=== PATIENT | male | born 1985 | race Caucasian/White ===

== ENCOUNTER 2021-11-15 23:03 | Inpatient (IN) | payer MEDICAID, SELFPAY ==
[~2021-11-15] VITALS: Ht 165.1 cm; Wt 52.6 kg
[2021-11-15 23:10] VITALS: BP_SYST 112
[2021-11-15] MEDS ORDERED: ONDANSETRON HCL 4 MG/2 ML VIAL IVP ONE (23:45)
[2021-11-15] MEDS ORDERED: cloNIDine HCL 0.1 MG TABLET PO ONE (23:45)
[2021-11-15] MEDS ORDERED: ASPIRIN 325 MG TABLET PO ONE (23:45)
[2021-11-15] MEDS ORDERED: NITROGLYCERIN 0.4 MG TAB.SUBL SL ONE (23:45)
[2021-11-15] MEDS ORDERED: MORPHINE 4 MG INJ. 4 MG/ML VIAL IVP ONE (23:45)
[2021-11-16] VITALS (8 sets, daily range): BP systolic 99–107
[2021-11-16 01:34] LABS: CALCIUM 9.5 mg/dL (8.4-11.0); CREATININE 0.5 mg/dL (0.55-1.30); POTASSIUM 3.5 mmol/L (3.5-5.1)
[2021-11-16 01:44] LABS: ALBUMIN 2.1 g/dL (3.4-4.8)
[2021-11-16] MEDS ORDERED: NS 500 ML IV ONE ×2 (01:45)
[2021-11-16] MEDS ORDERED: ONDANSETRON HCL 4 MG/2 ML VIAL IVP ONE (02:15)
[2021-11-16] MEDS ORDERED: MORPHINE 4 MG INJ. 4 MG/ML VIAL IVP ONE (02:15)
[2021-11-16 02:28] LABS: BASOPHILS # (AUTO) 0.1 K/uL (0.0-0.2); BASOPHILS % (AUTO) 0.3 % (0.0-2.0); EOSINOPHILS # (AUTO) 0.5 K/uL (0.0-0.4); HEMATOCRIT 24.8 % (36-54); LYMPHOCYTES # (AUTO) 5.9 K/uL (1.0-5.5); MEAN CORPUSCULAR HEMOGLOBIN 28 pg (27-31); MEAN CORPUSCULAR HGB CONC 32 % (32-36); MEAN CORPUSCULAR VOLUME 86 fL (79.0-98.0); MONOCYTES # (AUTO) 1.3 K/uL (0.0-1.0); MONOCYTES % (AUTO) 6.9 % (1.7-9.3); NEUTROPHILS # (AUTO) 10.6 K/uL (1.8-7.7); NEUTROPHILS % (AUTO) 57.8 % (40.0-70.0); RED BLOOD CELL COUNT(AUTO) 2.88 MIL/uL (4.2-6.2); RED CELL DISTRIBUTION WIDTH 21.6 % (9.0-15.0); WHITE BLOOD COUNT (AUTO) 18.4 K/uL (4.8-10.8)
[2021-11-16 02:32] LABS: PLATELET COUNT (AUTO) 962 K/uL (130-430)
[2021-11-16 03:19] LABS: BILIRUBIN,URINE NEGATIVE (NEGATIVE); BLOOD, URINE NEGATIVE (NEGATIVE); CLARITY/URINE CLEAR (CLEAR); COLOR,URINE YELLOW (YELLOW); GLUCOSE,URINE NEGATIVE (NEGATIVE); KETONES,URINE NEGATIVE (NEGATIVE); LEUKOCYTE ESTERASE ,URINE NEGATIVE (NEGATIVE); NITRITE, URINE NEGATIVE (NEGATIVE); PH,URINE 6.5 (5.0-8.0); PROTEIN URINE TRACE (NEGATIVE); UROBILINOGEN,URINE 0.2 (0.2-1.0)
[2021-11-16 03:45] LABS: URINE SULFO SALICYLIC ACID NEGATIVE (NEGATIVE)
[2021-11-16 04:39] LABS: TOTAL BILIRUBIN 0.9 mg/dL (0.0-1.0)
[2021-11-16] MEDS ORDERED: VANCOMYCIN HCL 1,000 MG in NS 250 ML IV ONE (06:15)
[2021-11-16] MEDS ORDERED: LEVOFLOXACIN IN DEXTROSE 5 % 100 ML IV ONE (06:15)
[2021-11-16] MEDS ORDERED: PIPERACILLIN/TAZO 3.375 GM in NS 50 ML IV ONE (06:15)
[2021-11-16] MEDS ORDERED: MORPHINE 2 MG/ML INJ. SYRINGE IVP ONE (06:15)
[2021-11-16] MEDS ORDERED: VANCOMYCIN HCL 1000 MG/VIAL IV ONE (06:34)
[2021-11-16] MEDS ORDERED: PIPERACILLIN/TAZOBACTAM 3.375 GM/VIAL (ZOSYN) IV ONE (06:34)
[2021-11-16] MEDS ORDERED: OXYIR5 GT (06:53)
[2021-11-16] MEDS ORDERED: MELA5TAB12 GT (06:53)
[2021-11-16] MEDS ORDERED: PROP10TA10 GT (06:53)
[2021-11-16] MEDS ORDERED: ASCO500T20 GT (06:53)
[2021-11-16] MEDS ORDERED: ASA81 GT (06:53)
[2021-11-16] MEDS ORDERED: TYLL650 GT (06:53)
[2021-11-16] MEDS ORDERED: CHLO473M5 PO (06:53)
[2021-11-16] MEDS ORDERED: ALBU8.5H8 INH (06:53)
[2021-11-16] MEDS ORDERED: CARB30DR14 EACH EYE (06:53)
[2021-11-16] MEDS ORDERED: DOCU-144 GT (06:53)
[2021-11-16] MEDS ORDERED: MULT-1117 GT (06:53)
[2021-11-16] MEDS ORDERED: ZINC50TA69 GT (06:53)
[2021-11-16] MEDS ORDERED: LIP40 GT (06:53)
[2021-11-16] MEDS ORDERED: INSU100V9 SQ (06:53)
[2021-11-16] MEDS ORDERED: MORPHINE 2 MG/ML INJ. SYRINGE ONE (07:53)
[2021-11-16] MEDS: MORPHINE 2 MG/ML INJ. SYRINGE IVP PRN ×2 (08:34→13:52)
[2021-11-16] MEDS: D5/0.45 NS 1,000 ML IV SCH (08:41)
[2021-11-16] MEDS ORDERED: oxyCODONE HCL 5 MG TABLET GT PRN (13:30)
[2021-11-16] MEDS ORDERED: ALBUTEROL MDI INHALATION 8 GM INH INH PRN (13:30)
[2021-11-16] MEDS ORDERED: ACETAMINOPHEN 650 MG/20.3 ML UDC GT SCH (13:30)
[2021-11-16] MEDS ORDERED: ALBUTEROL SULFATE 0.083% 2.5 MG/3 ML VIAL.NEB INH PRN (14:00)
[2021-11-16] MEDS: CEFEPIME 2 GM in D5W 100 ML IV SCH (16:45)
[2021-11-16] MEDS ORDERED: BALSAM PERU/CASTOR OIL 56.7 GM OINT...G. TP ONE (17:30)
[2021-11-16] MEDS: PROPRANOLOL HCL 10 MG TABLET (INDERAL) GT SCH ×2 (18:00→23:59)
[2021-11-16] MEDS: VANCOMYCIN HCL 1,250 MG in NS 250 ML IV SCH (18:14)
[2021-11-16] MEDS: ATORVASTATIN 20 MG TABLET GT SCH (21:53)
[2021-11-16] MEDS: CHLORHEXIDINE GLUCONATE 15 ML/DOSE, 480 ML MM SCH (21:54)
[2021-11-16] MEDS: levoFLOXacin 500 MG TABLET PO SCH (21:58)
[2021-11-17] VITALS (7 sets, daily range): BP systolic 97–150
[2021-11-17] MEDS: MORPHINE 2 MG/ML INJ. SYRINGE IVP PRN ×5 (02:07→20:48)
[2021-11-17] MEDS: CEFEPIME 2 GM in D5W 100 ML IV SCH ×2 (05:29→16:08)
[2021-11-17] MEDS: D5/0.45 NS 1,000 ML IV SCH ×2 (05:30→23:00)
[2021-11-17 06:27] LABS: CALCIUM 9.3 mg/dL (8.4-11.0); CREATININE 0.48 mg/dL (0.55-1.30); POTASSIUM 3.1 mmol/L (3.5-5.1)
[2021-11-17] MEDS: PROPRANOLOL HCL 10 MG TABLET (INDERAL) GT SCH ×3 (07:26→17:00)
[2021-11-17] MEDS: VANCOMYCIN HCL 1,250 MG in NS 250 ML IV SCH ×2 (07:26→17:01)
[2021-11-17 07:27] LABS: BASOPHILS # (AUTO) 0.1 K/uL (0.0-0.2); BASOPHILS % (AUTO) 0.6 % (0.0-2.0); EOSINOPHILS # (AUTO) 0.2 K/uL (0.0-0.4); EOSINOPHILS % (AUTO) 1.5 % (0.0-4.0); HEMATOCRIT 23.4 % (36-54); HEMOGLOBIN 7.4 g/dL (14.0-18.0); LYMPHOCYTES # (AUTO) 5.1 K/uL (1.0-5.5); LYMPHOCYTES % (AUTO) 41.7 % (20.5-51.5); MEAN CORPUSCULAR HEMOGLOBIN 27 pg (27-31); MEAN CORPUSCULAR HGB CONC 32 % (32-36); MEAN CORPUSCULAR VOLUME 86 fL (79.0-98.0); MONOCYTES # (AUTO) 1.3 K/uL (0.0-1.0); MONOCYTES % (AUTO) 10.9 % (1.7-9.3); NEUTROPHILS # (AUTO) 5.6 K/uL (1.8-7.7); RED BLOOD CELL COUNT(AUTO) 2.71 MIL/uL (4.2-6.2); RED CELL DISTRIBUTION WIDTH 21.3 % (9.0-15.0); WHITE BLOOD COUNT (AUTO) 12.3 K/uL (4.8-10.8)
[2021-11-17] MEDS: ASCORBIC ACID 500 MG TABLET GT SCH (08:26)
[2021-11-17] MEDS: MULTIVITAMINS TAB 1 TABLET GT SCH (08:27)
[2021-11-17] MEDS: ASPIRIN 81 MG TAB.CHEW GT SCH (08:27)
[2021-11-17] MEDS: DOCUSATE SODIUM 100 MG CAPSULE PO SCH (08:28)
[2021-11-17] MEDS: CHLORHEXIDINE GLUCONATE 15 ML/DOSE, 480 ML MM SCH ×2 (08:34→20:43)
[2021-11-17] MEDS: BALSAM PERU/CASTOR OIL 56.7 GM OINT...G. TP SCH (08:34)
[2021-11-17 08:50] LABS: PLATELET COUNT (AUTO) 929 K/uL (130-430)
[2021-11-17 14:03] LABS: NEUTROPHILS % (AUTO) 45.3 % (40.0-70.0)
[2021-11-17] MEDS: levoFLOXacin 500 MG TABLET PO SCH (20:43)
[2021-11-17] MEDS: ATORVASTATIN 20 MG TABLET GT SCH (20:43)
[2021-11-18] VITALS (7 sets, daily range): BP systolic 96–119
[2021-11-18] MEDS: PROPRANOLOL HCL 10 MG TABLET (INDERAL) GT SCH ×4 (00:31→17:09)
[2021-11-18] MEDS: MORPHINE 2 MG/ML INJ. SYRINGE IVP PRN ×6 (00:36→21:47)
[2021-11-18] MEDS: CEFEPIME 2 GM in D5W 100 ML IV SCH ×2 (05:13→17:08)
[2021-11-18] MEDS: VANCOMYCIN HCL 1,250 MG in NS 250 ML IV SCH (05:14)
[2021-11-18] MEDS: BALSAM PERU/CASTOR OIL 56.7 GM OINT...G. TP SCH (09:32)
[2021-11-18] MEDS: CHLORHEXIDINE GLUCONATE 15 ML/DOSE, 480 ML MM SCH ×2 (09:32→21:47)
[2021-11-18] MEDS: ASCORBIC ACID 500 MG TABLET GT SCH (09:33)
[2021-11-18] MEDS: DOCUSATE SODIUM 100 MG CAPSULE PO SCH (09:33)
[2021-11-18] MEDS: ASPIRIN 81 MG TAB.CHEW GT SCH (09:33)
[2021-11-18] MEDS: MULTIVITAMINS TAB 1 TABLET GT SCH (09:33)
[2021-11-18 10:42] LABS: ALANINE AMINOTRANSFERASE 18 U/L (12-78); ANION GAP 12 (5-15); ASPARTATE AMINOTRANSFERASE 20 U/L (10-37); CALCIUM 9.2 mg/dL (8.4-11.0); CHLORIDE 106 mmol/L (98-107); GFR AFRICAN AMERICAN 242 mL/min (>90); GLUCOSE 121 mg/dL (70-99); POTASSIUM 3.3 mmol/L (3.5-5.1); SODIUM SERUM 143 mmol/L (136-145); TOTAL BILIRUBIN < 0.1 mg/dL (0.0-1.0); UREA NITROGEN, BLOOD 8 mg/dL (8-21)
[2021-11-18 11:43] LABS: BASOPHILS # (AUTO) 0.1 K/uL (0.0-0.2); BASOPHILS % (AUTO) 0.8 % (0.0-2.0); EOSINOPHILS # (AUTO) 0.3 K/uL (0.0-0.4); EOSINOPHILS % (AUTO) 2.1 % (0.0-4.0); HEMOGLOBIN 7.5 g/dL (14.0-18.0); LYMPHOCYTES # (AUTO) 5.3 K/uL (1.0-5.5); LYMPHOCYTES % (AUTO) 35.6 % (20.5-51.5); MEAN CORPUSCULAR HEMOGLOBIN 27 pg (27-31); MEAN CORPUSCULAR HGB CONC 31 % (32-36); MEAN CORPUSCULAR VOLUME 88 fL (79.0-98.0); MONOCYTES # (AUTO) 1.7 K/uL (0.0-1.0); MONOCYTES % (AUTO) 11.4 % (1.7-9.3); NEUTROPHILS # (AUTO) 7.5 K/uL (1.8-7.7); NEUTROPHILS % (AUTO) 50.1 % (40.0-70.0); RED BLOOD CELL COUNT(AUTO) 2.73 MIL/uL (4.2-6.2); RED CELL DISTRIBUTION WIDTH 21.6 % (9.0-15.0)
[2021-11-18] MEDS ORDERED: POTASSIUM CHLORIDE 20 MEQ TAB.PRT.SR PO ONE (11:45)
[2021-11-18 13:02] LABS: PLATELET COUNT (AUTO) 927 K/uL (130-430)
[2021-11-18] MEDS: VANCOMYCIN HCL 1,000 MG in NS 250 ML IV SCH (17:20)
[2021-11-18] MEDS: D5/0.45 NS 1,000 ML IV SCH (19:00)
[2021-11-18] MEDS: ATORVASTATIN 20 MG TABLET GT SCH (21:44)
[2021-11-18] MEDS: levoFLOXacin 500 MG TABLET PO SCH (21:44)
[2021-11-19] VITALS: BP_SYST 105
[2021-11-19] MEDS: PROPRANOLOL HCL 10 MG TABLET (INDERAL) GT SCH ×4 (00:42→17:51)
[2021-11-19] MEDS: MORPHINE 2 MG/ML INJ. SYRINGE IVP PRN ×8 (01:49→22:55)
[2021-11-19] MEDS: CEFEPIME 2 GM in D5W 100 ML IV SCH (05:08)
[2021-11-19] MEDS: VANCOMYCIN HCL 1,000 MG in NS 250 ML IV SCH ×2 (05:56→17:52)
[2021-11-19 08:00] VITALS: BP_SYST 102
[2021-11-19 09:16] VITALS: BP_SYST 111
[2021-11-19] MEDS: ASPIRIN 81 MG TAB.CHEW GT SCH (10:06)
[2021-11-19] MEDS: MULTIVITAMINS TAB 1 TABLET GT SCH (10:06)
[2021-11-19] MEDS: CHLORHEXIDINE GLUCONATE 15 ML/DOSE, 480 ML MM SCH ×2 (10:06→22:50)
[2021-11-19] MEDS: DOCUSATE SODIUM 100 MG CAPSULE PO SCH (10:07)
[2021-11-19] MEDS: ASCORBIC ACID 500 MG TABLET GT SCH (10:07)
[2021-11-19] MEDS: BALSAM PERU/CASTOR OIL 56.7 GM OINT...G. TP SCH (10:08)
[2021-11-19 12:19] VITALS: BP_SYST 104
[2021-11-19] MEDS ORDERED: SULFAMETHOXAZOLE/TRIMETHOPR DS 1 TABLET PO ONE (13:00)
[2021-11-19] MEDS: D5/0.45 NS 1,000 ML IV SCH (13:13)
[2021-11-19 16:32] VITALS: BP_SYST 110
[2021-11-19 21:03] VITALS: BP_SYST 100
[2021-11-19] MEDS: ATORVASTATIN 20 MG TABLET GT SCH (22:49)
[2021-11-19] MEDS: levoFLOXacin 500 MG TABLET PO SCH (22:50)
[2021-11-19] MEDS: SULFAMETHOXAZOLE/TRIMETHOPR DS 1 TABLET PO SCH (22:50)
[2021-11-20] VITALS (7 sets, daily range): BP systolic 93–121
[2021-11-20] MEDS: PROPRANOLOL HCL 10 MG TABLET (INDERAL) GT SCH ×5 (00:18→23:42)
[2021-11-20] MEDS: MORPHINE 2 MG/ML INJ. SYRINGE IVP PRN ×4 (03:02→17:53)
[2021-11-20] MEDS: VANCOMYCIN HCL 1,000 MG in NS 250 ML IV SCH (06:20)
[2021-11-20 06:58] LABS: BASOPHILS # (AUTO) 0.1 K/uL (0.0-0.2); BASOPHILS % (AUTO) 0.4 % (0.0-2.0); EOSINOPHILS # (AUTO) 0.5 K/uL (0.0-0.4); EOSINOPHILS % (AUTO) 3.6 % (0.0-4.0); HEMOGLOBIN 7.6 g/dL (14.0-18.0); LYMPHOCYTES # (AUTO) 5.2 K/uL (1.0-5.5); LYMPHOCYTES % (AUTO) 35.5 % (20.5-51.5); MEAN CORPUSCULAR HEMOGLOBIN 27 pg (27-31); MEAN CORPUSCULAR HGB CONC 32 % (32-36); MEAN CORPUSCULAR VOLUME 86 fL (79.0-98.0); MONOCYTES # (AUTO) 1.2 K/uL (0.0-1.0); MONOCYTES % (AUTO) 7.9 % (1.7-9.3); NEUTROPHILS # (AUTO) 7.7 K/uL (1.8-7.7); NEUTROPHILS % (AUTO) 52.6 % (40.0-70.0); RED BLOOD CELL COUNT(AUTO) 2.79 MIL/uL (4.2-6.2); RED CELL DISTRIBUTION WIDTH 21.3 % (9.0-15.0); WHITE BLOOD COUNT (AUTO) 14.6 K/uL (4.8-10.8)
[2021-11-20 07:48] LABS: PLATELET COUNT (AUTO) 932 K/uL (130-430)
[2021-11-20 07:54] LABS: ALANINE AMINOTRANSFERASE 17 U/L (12-78); ALBUMIN 1.9 g/dL (3.4-4.8); ANION GAP 9 (5-15); ASPARTATE AMINOTRANSFERASE 24 U/L (10-37); CALCIUM 9.1 mg/dL (8.4-11.0); CHLORIDE 104 mmol/L (98-107); CREATININE 0.44 mg/dL (0.55-1.30); GLUCOSE 93 mg/dL (70-99); POTASSIUM 3.2 mmol/L (3.5-5.1); SODIUM SERUM 137 mmol/L (136-145); UREA NITROGEN, BLOOD 9 mg/dL (8-21)
[2021-11-20 08:24] LABS: GFR AFRICAN AMERICAN 280 mL/min (>90)
[2021-11-20 08:40] LABS: TOTAL BILIRUBIN < 0.1 mg/dL (0.0-1.0)
[2021-11-20] MEDS: ASCORBIC ACID 500 MG TABLET GT SCH (08:48)
[2021-11-20] MEDS: DOCUSATE SODIUM 100 MG CAPSULE PO SCH (08:48)
[2021-11-20] MEDS: ASPIRIN 81 MG TAB.CHEW GT SCH (08:48)
[2021-11-20] MEDS: MULTIVITAMINS TAB 1 TABLET GT SCH (08:49)
[2021-11-20] MEDS: SULFAMETHOXAZOLE/TRIMETHOPR DS 1 TABLET PO SCH ×2 (08:49→22:28)
[2021-11-20] MEDS: BALSAM PERU/CASTOR OIL 56.7 GM OINT...G. TP SCH (08:50)
[2021-11-20] MEDS: CHLORHEXIDINE GLUCONATE 15 ML/DOSE, 480 ML MM SCH ×2 (08:50→22:29)
[2021-11-20] MEDS ORDERED: POTASSIUM CHLORIDE 8 MEQ TABLET.SA PO ONE (09:30)
[2021-11-20] MEDS: D5/0.45 NS 1,000 ML IV SCH (13:19)
[2021-11-20] MEDS: ACETAMINOPHEN 650 MG/20.3 ML UDC GT PRN (19:03)
[2021-11-20] MEDS: VANCOMYCIN HCL 750 MG in NS 250 ML IV SCH (19:06)
[2021-11-20] MEDS: ATORVASTATIN 20 MG TABLET GT SCH (22:28)
[2021-11-20] MEDS: levoFLOXacin 500 MG TABLET PO SCH (22:28)
[2021-11-21] MEDS: VANCOMYCIN HCL 750 MG in NS 250 ML IV SCH ×3 (02:22→17:59)
[2021-11-21] MEDS: MORPHINE 2 MG/ML INJ. SYRINGE IVP PRN ×5 (02:23→20:06)
[2021-11-21] MEDS: D5/0.45 NS 1,000 ML IV SCH ×2 (07:00→10:08)
[2021-11-21] MEDS: PROPRANOLOL HCL 10 MG TABLET (INDERAL) GT SCH ×3 (07:29→18:00)
[2021-11-21 07:44] LABS: TOTAL IRON BIND. CAPACITY 225 ug/dL (250-450)
[2021-11-21 08:03] VITALS: BP_SYST 102
[2021-11-21] MEDS: DOCUSATE SODIUM 100 MG CAPSULE PO SCH (09:00)
[2021-11-21] MEDS: MULTIVITAMINS TAB 1 TABLET GT SCH (09:54)
[2021-11-21] MEDS: SULFAMETHOXAZOLE/TRIMETHOPR DS 1 TABLET PO SCH ×2 (09:54→20:12)
[2021-11-21] MEDS: CHLORHEXIDINE GLUCONATE 15 ML/DOSE, 480 ML MM SCH ×2 (09:54→20:12)
[2021-11-21] MEDS: ASPIRIN 81 MG TAB.CHEW GT SCH (09:54)
[2021-11-21] MEDS: ASCORBIC ACID 500 MG TABLET GT SCH (09:54)
[2021-11-21] MEDS: BALSAM PERU/CASTOR OIL 56.7 GM OINT...G. TP SCH (09:55)
[2021-11-21 11:31] VITALS: BP_SYST 101
[2021-11-21] MEDS ORDERED: POTASSIUM CHLORIDE 20 MEQ/PKT PACKET GT ONE (13:45)
[2021-11-21 15:31] VITALS: BP_SYST 110
[2021-11-21 19:55] VITALS: BP_SYST 133
[2021-11-21] MEDS: ATORVASTATIN 20 MG TABLET GT SCH (20:12)
[2021-11-21] MEDS: levoFLOXacin 500 MG TABLET PO SCH (20:12)
[2021-11-21] MEDS: ACETAMINOPHEN 650 MG/20.3 ML UDC GT PRN (20:52)
[2021-11-22] MEDS: MORPHINE 2 MG/ML INJ. SYRINGE IVP PRN ×6 (00:05→21:43)
[2021-11-22] MEDS: PROPRANOLOL HCL 10 MG TABLET (INDERAL) GT SCH ×4 (00:14→17:46)
[2021-11-22 01:41] VITALS: BP_SYST 123
[2021-11-22] MEDS: VANCOMYCIN HCL 750 MG in NS 250 ML IV SCH ×3 (03:04→21:50)
[2021-11-22 06:57] LABS: CALCIUM 8.6 mg/dL (8.4-11.0); CREATININE 0.44 mg/dL (0.55-1.30)
[2021-11-22 07:02] LABS: BASOPHILS # (AUTO) 0.1 K/uL (0.0-0.2); BASOPHILS % (AUTO) 0.5 % (0.0-2.0); EOSINOPHILS # (AUTO) 1.1 K/uL (0.0-0.4); EOSINOPHILS % (AUTO) 7.4 % (0.0-4.0); HEMATOCRIT 26.7 % (36-54); HEMOGLOBIN 8.5 g/dL (14.0-18.0); LYMPHOCYTES # (AUTO) 4.4 K/uL (1.0-5.5); LYMPHOCYTES % (AUTO) 29.8 % (20.5-51.5); MEAN CORPUSCULAR HEMOGLOBIN 28 pg (27-31); MEAN CORPUSCULAR HGB CONC 32 % (32-36); MEAN CORPUSCULAR VOLUME 86 fL (79.0-98.0); MONOCYTES # (AUTO) 1.3 K/uL (0.0-1.0); MONOCYTES % (AUTO) 8.8 % (1.7-9.3); NEUTROPHILS # (AUTO) 7.9 K/uL (1.8-7.7); NEUTROPHILS % (AUTO) 53.5 % (40.0-70.0); RED BLOOD CELL COUNT(AUTO) 3.11 MIL/uL (4.2-6.2); RED CELL DISTRIBUTION WIDTH 21.5 % (9.0-15.0); WHITE BLOOD COUNT (AUTO) 14.8 K/uL (4.8-10.8)
[2021-11-22 07:25] LABS: PLATELET COUNT (AUTO) 925 K/uL (130-430)
[2021-11-22 08:00] VITALS: BP_SYST 102
[2021-11-22 08:06] LABS: FOLATE (FOLIC ACID) 11.6 ng/mL (>3.0)
[2021-11-22] MEDS: SULFAMETHOXAZOLE/TRIMETHOPR DS 1 TABLET PO SCH ×2 (09:16→21:44)
[2021-11-22] MEDS: DOCUSATE SODIUM 100 MG CAPSULE PO SCH (09:17)
[2021-11-22] MEDS: MULTIVITAMINS TAB 1 TABLET GT SCH (09:17)
[2021-11-22] MEDS: ASCORBIC ACID 500 MG TABLET GT SCH (09:17)
[2021-11-22] MEDS: ASPIRIN 81 MG TAB.CHEW GT SCH (09:17)
[2021-11-22] MEDS: CHLORHEXIDINE GLUCONATE 15 ML/DOSE, 480 ML MM SCH ×2 (09:23→21:49)
[2021-11-22] MEDS: BALSAM PERU/CASTOR OIL 56.7 GM OINT...G. TP SCH (09:25)
[2021-11-22 11:29] VITALS: BP_SYST 106
[2021-11-22 15:28] VITALS: BP_SYST 103
[2021-11-22] MEDS: D5/0.45 NS 1,000 ML IV SCH (17:54)
[2021-11-22 20:00] VITALS: BP_SYST 119
[2021-11-22] MEDS: ATORVASTATIN 20 MG TABLET GT SCH (21:44)
[2021-11-22] MEDS: levoFLOXacin 500 MG TABLET PO SCH (21:44)
[2021-11-23] MEDS: PROPRANOLOL HCL 10 MG TABLET (INDERAL) GT SCH ×4 (00:22→17:04)
[2021-11-23 00:57] VITALS: BP_SYST 112
[2021-11-23] MEDS: MORPHINE 2 MG/ML INJ. SYRINGE IVP PRN ×6 (01:57→22:43)
[2021-11-23] MEDS: VANCOMYCIN HCL 750 MG in NS 250 ML IV SCH ×3 (03:59→19:33)
[2021-11-23 08:00] VITALS: BP_SYST 103
[2021-11-23] MEDS: ASCORBIC ACID 500 MG TABLET GT SCH (08:23)
[2021-11-23] MEDS: MULTIVITAMINS TAB 1 TABLET GT SCH (08:24)
[2021-11-23] MEDS: DOCUSATE SODIUM 100 MG CAPSULE PO SCH (08:24)
[2021-11-23] MEDS: CHLORHEXIDINE GLUCONATE 15 ML/DOSE, 480 ML MM SCH ×2 (08:24→22:44)
[2021-11-23] MEDS: BALSAM PERU/CASTOR OIL 56.7 GM OINT...G. TP SCH (08:24)
[2021-11-23] MEDS: SULFAMETHOXAZOLE/TRIMETHOPR DS 1 TABLET PO SCH ×2 (08:24→20:52)
[2021-11-23] MEDS: ASPIRIN 81 MG TAB.CHEW GT SCH (08:24)
[2021-11-23 13:11] VITALS: BP_SYST 109
[2021-11-23 13:40] LABS: BASOPHILS # (AUTO) 0.2 K/uL (0.0-0.2); EOSINOPHILS # (AUTO) 0.8 K/uL (0.0-0.4); EOSINOPHILS % (AUTO) 4.8 % (0.0-4.0); HEMATOCRIT 25.2 % (36-54); HEMOGLOBIN 8.1 g/dL (14.0-18.0); LYMPHOCYTES # (AUTO) 5.5 K/uL (1.0-5.5); LYMPHOCYTES % (AUTO) 33.1 % (20.5-51.5); MEAN CORPUSCULAR HEMOGLOBIN 28 pg (27-31); MEAN CORPUSCULAR HGB CONC 32 % (32-36); MEAN CORPUSCULAR VOLUME 86 fL (79.0-98.0); MONOCYTES # (AUTO) 1.3 K/uL (0.0-1.0); MONOCYTES % (AUTO) 7.6 % (1.7-9.3); NEUTROPHILS % (AUTO) 53.5 % (40.0-70.0); RED BLOOD CELL COUNT(AUTO) 2.93 MIL/uL (4.2-6.2); RED CELL DISTRIBUTION WIDTH 21.6 % (9.0-15.0); WHITE BLOOD COUNT (AUTO) 16.7 K/uL (4.8-10.8)
[2021-11-23 13:51] LABS: PLATELET COUNT (AUTO) 931 K/uL (130-430)
[2021-11-23 17:48] VITALS: BP_SYST 106
[2021-11-23] MEDS: D5/0.45 NS 1,000 ML IV SCH (19:00)
[2021-11-23] MEDS: ACETAMINOPHEN 650 MG/20.3 ML UDC GT PRN (19:32)
[2021-11-23 20:00] VITALS: BP_SYST 128
[2021-11-23] MEDS: ATORVASTATIN 20 MG TABLET GT SCH (20:52)
[2021-11-23 23:36] VITALS: BP_SYST 107
[2021-11-24] MEDS: PROPRANOLOL HCL 10 MG TABLET (INDERAL) GT SCH ×4 (00:48→17:10)
[2021-11-24] MEDS: MORPHINE 2 MG/ML INJ. SYRINGE IVP PRN ×5 (02:44→20:02)
[2021-11-24] MEDS: D5/0.45 NS 1,000 ML IV SCH (02:50)
[2021-11-24 07:08] LABS: BASOPHILS % (AUTO) 0.3 % (0.0-2.0); EOSINOPHILS % (AUTO) 7.8 % (0.0-4.0); HEMOGLOBIN 8.7 g/dL (14.0-18.0); LYMPHOCYTES # (AUTO) 5.3 K/uL (1.0-5.5); MEAN CORPUSCULAR HEMOGLOBIN 27 pg (27-31); MEAN CORPUSCULAR HGB CONC 31 % (32-36); MEAN CORPUSCULAR VOLUME 87 fL (79.0-98.0); MONOCYTES # (AUTO) 1.2 K/uL (0.0-1.0); NEUTROPHILS # (AUTO) 5.6 K/uL (1.8-7.7); NEUTROPHILS % (AUTO) 42.9 % (40.0-70.0); RED BLOOD CELL COUNT(AUTO) 3.24 MIL/uL (4.2-6.2); RED CELL DISTRIBUTION WIDTH 22.1 % (9.0-15.0); WHITE BLOOD COUNT (AUTO) 13.2 K/uL (4.8-10.8)
[2021-11-24 07:48] LABS: PLATELET COUNT (AUTO) 966 K/uL (130-430)
[2021-11-24 07:49] VITALS: BP_SYST 106
[2021-11-24] MEDS: DOCUSATE SODIUM 100 MG CAPSULE PO SCH (08:14)
[2021-11-24] MEDS: MULTIVITAMINS TAB 1 TABLET GT SCH (08:18)
[2021-11-24] MEDS: ASPIRIN 81 MG TAB.CHEW GT SCH (08:18)
[2021-11-24] MEDS: SULFAMETHOXAZOLE/TRIMETHOPR DS 1 TABLET PO SCH ×2 (08:18→20:04)
[2021-11-24] MEDS: ASCORBIC ACID 500 MG TABLET GT SCH (08:18)
[2021-11-24] MEDS: CHLORHEXIDINE GLUCONATE 15 ML/DOSE, 480 ML MM SCH ×2 (08:18→20:04)
[2021-11-24 08:19] LABS: ALBUMIN 2.4 g/dL (3.4-4.8); CALCIUM 9.7 mg/dL (8.4-11.0); CREATININE 0.53 mg/dL (0.55-1.30); POTASSIUM 3.8 mmol/L (3.5-5.1)
[2021-11-24] MEDS: BALSAM PERU/CASTOR OIL 56.7 GM OINT...G. TP SCH (08:19)
[2021-11-24] MEDS: ACETAMINOPHEN 650 MG/20.3 ML UDC GT PRN ×2 (08:59→18:08)
[2021-11-24 09:05] LABS: TOTAL BILIRUBIN 0.1 mg/dL (0.0-1.0)
[2021-11-24 12:57] VITALS: BP_SYST 108
[2021-11-24 16:53] VITALS: BP_SYST 107
[2021-11-24 19:00] VITALS: BP_SYST 103
[2021-11-24 20:00] VITALS: BP_SYST 103
[2021-11-24] MEDS: ATORVASTATIN 20 MG TABLET GT SCH (20:04)
[2021-11-25] VITALS (9 sets, daily range): BP systolic 103–110
[2021-11-25] MEDS: MORPHINE 2 MG/ML INJ. SYRINGE IVP PRN ×5 (00:07→17:07)
[2021-11-25] MEDS: PROPRANOLOL HCL 10 MG TABLET (INDERAL) GT SCH ×4 (00:08→17:09)
[2021-11-25 07:51] LABS: BASOPHILS % (AUTO) 0.4 % (0.0-2.0); EOSINOPHILS % (AUTO) 7.7 % (0.0-4.0); HEMATOCRIT 27.7 % (36-54); HEMOGLOBIN 9.1 g/dL (14.0-18.0); LYMPHOCYTES # (AUTO) 4.6 K/uL (1.0-5.5); LYMPHOCYTES % (AUTO) 35.6 % (20.5-51.5); MEAN CORPUSCULAR HEMOGLOBIN 29 pg (27-31); MEAN CORPUSCULAR HGB CONC 33 % (32-36); MEAN CORPUSCULAR VOLUME 87 fL (79.0-98.0); MONOCYTES # (AUTO) 0.9 K/uL (0.0-1.0); MONOCYTES % (AUTO) 6.8 % (1.7-9.3); NEUTROPHILS # (AUTO) 6.3 K/uL (1.8-7.7); NEUTROPHILS % (AUTO) 49.5 % (40.0-70.0); RED BLOOD CELL COUNT(AUTO) 3.19 MIL/uL (4.2-6.2); RED CELL DISTRIBUTION WIDTH 21.8 % (9.0-15.0); WHITE BLOOD COUNT (AUTO) 12.8 K/uL (4.8-10.8)
[2021-11-25 08:31] LABS: CALCIUM 8.7 mg/dL (8.4-11.0); CREATININE 0.6 mg/dL (0.55-1.30)
[2021-11-25] MEDS: SULFAMETHOXAZOLE/TRIMETHOPR DS 1 TABLET PO SCH ×2 (08:43→20:53)
[2021-11-25] MEDS: MULTIVITAMINS TAB 1 TABLET GT SCH (08:43)
[2021-11-25] MEDS: ASCORBIC ACID 500 MG TABLET GT SCH (08:43)
[2021-11-25] MEDS: ASPIRIN 81 MG TAB.CHEW GT SCH (08:43)
[2021-11-25] MEDS: DOCUSATE SODIUM 100 MG CAPSULE PO SCH (08:43)
[2021-11-25] MEDS: BALSAM PERU/CASTOR OIL 56.7 GM OINT...G. TP SCH (08:44)
[2021-11-25] MEDS: CHLORHEXIDINE GLUCONATE 15 ML/DOSE, 480 ML MM SCH ×2 (08:44→20:54)
[2021-11-25] MEDS: D5/0.45 NS 1,000 ML IV SCH (11:38)
[2021-11-25] MEDS: ACETAMINOPHEN 650 MG/20.3 ML UDC GT PRN (11:59)
[2021-11-25 14:22] LABS: PLATELET COUNT (AUTO) 890 K/uL (130-430)
[2021-11-25] MEDS: ATORVASTATIN 20 MG TABLET GT SCH (20:53)
[2021-11-26 00:56] VITALS: BP_SYST 147
[2021-11-26] MEDS: PROPRANOLOL HCL 10 MG TABLET (INDERAL) GT SCH ×4 (00:58→17:16)
[2021-11-26] MEDS: D5/0.45 NS 1,000 ML IV SCH (06:51)
[2021-11-26 07:46] LABS: BASOPHILS % (AUTO) 0.3 % (0.0-2.0); EOSINOPHILS # (AUTO) 1.5 K/uL (0.0-0.4); EOSINOPHILS % (AUTO) 11.3 % (0.0-4.0); HEMATOCRIT 28.7 % (36-54); HEMOGLOBIN 9.1 g/dL (14.0-18.0); LYMPHOCYTES # (AUTO) 4.7 K/uL (1.0-5.5); LYMPHOCYTES % (AUTO) 34.1 % (20.5-51.5); MEAN CORPUSCULAR HEMOGLOBIN 28 pg (27-31); MEAN CORPUSCULAR HGB CONC 32 % (32-36); MEAN CORPUSCULAR VOLUME 87 fL (79.0-98.0); MONOCYTES % (AUTO) 7.2 % (1.7-9.3); NEUTROPHILS # (AUTO) 6.5 K/uL (1.8-7.7); NEUTROPHILS % (AUTO) 47.1 % (40.0-70.0); RED BLOOD CELL COUNT(AUTO) 3.31 MIL/uL (4.2-6.2); RED CELL DISTRIBUTION WIDTH 21.3 % (9.0-15.0); WHITE BLOOD COUNT (AUTO) 13.8 K/uL (4.8-10.8)
[2021-11-26 07:47] LABS: CREATININE 0.54 mg/dL (0.55-1.30)
[2021-11-26 08:31] LABS: PLATELET COUNT (AUTO) 920 K/uL (130-430)
[2021-11-26] MEDS: DOCUSATE SODIUM 100 MG CAPSULE PO SCH (09:00)
[2021-11-26] MEDS: ASPIRIN 81 MG TAB.CHEW GT SCH (09:24)
[2021-11-26] MEDS: ASCORBIC ACID 500 MG TABLET GT SCH (09:25)
[2021-11-26] MEDS: MULTIVITAMINS TAB 1 TABLET GT SCH (09:25)
[2021-11-26] MEDS: SULFAMETHOXAZOLE/TRIMETHOPR DS 1 TABLET PO SCH ×2 (09:25→21:27)
[2021-11-26] MEDS: CHLORHEXIDINE GLUCONATE 15 ML/DOSE, 480 ML MM SCH ×2 (09:25→21:28)
[2021-11-26] MEDS: BALSAM PERU/CASTOR OIL 56.7 GM OINT...G. TP SCH (09:25)
[2021-11-26] MEDS: oxyCODONE HCL 5 MG TABLET PO PRN ×3 (10:14→21:29)
[2021-11-26 11:27] VITALS: BP_SYST 110
[2021-11-26] MEDS: ACETAMINOPHEN 650 MG/20.3 ML UDC GT PRN (13:14)
[2021-11-26 15:28] VITALS: BP_SYST 96
[2021-11-26 21:26] VITALS: BP_SYST 114
[2021-11-26] MEDS: ATORVASTATIN 20 MG TABLET GT SCH (21:28)
[2021-11-27 00:44] VITALS: BP_SYST 110
[2021-11-27] MEDS: PROPRANOLOL HCL 10 MG TABLET (INDERAL) GT SCH ×4 (01:11→17:32)
[2021-11-27] MEDS: D5/0.45 NS 1,000 ML IV SCH ×2 (05:18→23:00)
[2021-11-27 06:51] LABS: BASOPHILS # (AUTO) 0.1 K/uL (0.0-0.2); BASOPHILS % (AUTO) 0.4 % (0.0-2.0); EOSINOPHILS % (AUTO) 6.5 % (0.0-4.0); HEMATOCRIT 28.4 % (36-54); HEMOGLOBIN 9.2 g/dL (14.0-18.0); LYMPHOCYTES # (AUTO) 6.1 K/uL (1.0-5.5); LYMPHOCYTES % (AUTO) 39.8 % (20.5-51.5); MEAN CORPUSCULAR HEMOGLOBIN 28 pg (27-31); MEAN CORPUSCULAR HGB CONC 32 % (32-36); MEAN CORPUSCULAR VOLUME 87 fL (79.0-98.0); MONOCYTES % (AUTO) 6.4 % (1.7-9.3); NEUTROPHILS # (AUTO) 7.1 K/uL (1.8-7.7); NEUTROPHILS % (AUTO) 46.9 % (40.0-70.0); RED BLOOD CELL COUNT(AUTO) 3.25 MIL/uL (4.2-6.2); RED CELL DISTRIBUTION WIDTH 21.3 % (9.0-15.0); WHITE BLOOD COUNT (AUTO) 15.2 K/uL (4.8-10.8)
[2021-11-27 07:58] LABS: PLATELET COUNT (AUTO) 924 K/uL (130-430)
[2021-11-27 08:00] VITALS: BP_SYST 108
[2021-11-27 08:45] LABS: CREATININE 0.47 mg/dL (0.55-1.30); POTASSIUM 4.8 mmol/L (3.5-5.1)
[2021-11-27] MEDS: ASPIRIN 81 MG TAB.CHEW GT SCH (09:48)
[2021-11-27] MEDS: DOCUSATE SODIUM 100 MG CAPSULE PO SCH (09:48)
[2021-11-27] MEDS: MULTIVITAMINS TAB 1 TABLET GT SCH (09:48)
[2021-11-27] MEDS: ASCORBIC ACID 500 MG TABLET GT SCH (09:48)
[2021-11-27] MEDS: SULFAMETHOXAZOLE/TRIMETHOPR DS 1 TABLET PO SCH ×2 (09:48→21:30)
[2021-11-27] MEDS: oxyCODONE HCL 5 MG TABLET PO PRN ×2 (09:49→15:09)
[2021-11-27] MEDS: CHLORHEXIDINE GLUCONATE 15 ML/DOSE, 480 ML MM SCH ×2 (09:50→21:31)
[2021-11-27] MEDS: BALSAM PERU/CASTOR OIL 56.7 GM OINT...G. TP SCH (09:50)
[2021-11-27 11:25] VITALS: BP_SYST 103
[2021-11-27 15:35] VITALS: BP_SYST 122
[2021-11-27 20:22] VITALS: BP_SYST 104
[2021-11-27] MEDS: ATORVASTATIN 20 MG TABLET GT SCH (21:30)
[2021-11-28] VITALS (7 sets, daily range): BP systolic 94–114
[2021-11-28] MEDS: PROPRANOLOL HCL 10 MG TABLET (INDERAL) GT SCH ×4 (00:16→16:57)
[2021-11-28] MEDS: ACETAMINOPHEN 650 MG/20.3 ML UDC GT PRN ×3 (00:17→17:33)
[2021-11-28] MEDS: oxyCODONE HCL 5 MG TABLET PO PRN ×3 (06:49→20:13)
[2021-11-28] MEDS: ASCORBIC ACID 500 MG TABLET GT SCH (09:28)
[2021-11-28] MEDS: MULTIVITAMINS TAB 1 TABLET GT SCH (09:28)
[2021-11-28] MEDS: ASPIRIN 81 MG TAB.CHEW GT SCH (09:28)
[2021-11-28] MEDS: DOCUSATE SODIUM 100 MG CAPSULE PO SCH (09:28)
[2021-11-28] MEDS: SULFAMETHOXAZOLE/TRIMETHOPR DS 1 TABLET PO SCH (09:28)
[2021-11-28] MEDS: BALSAM PERU/CASTOR OIL 56.7 GM OINT...G. TP SCH (09:29)
[2021-11-28] MEDS: CHLORHEXIDINE GLUCONATE 15 ML/DOSE, 480 ML MM SCH (09:29)
[2021-11-28] MEDS: ATORVASTATIN 20 MG TABLET GT SCH (20:14)
== END 2021-11-28 21:44 | DRG 720 ==
LOC: SED 23:03 → STU 11-16 06:56 → SMU 11-18 12:16
PROVIDERS: ADMIT Internal Medicine; ATTEND Internal Medicine
PROC: 5A1955Z Respiratory Ventilation, Greater than 96 Consecutive Hours (ICD-10-PCS; principal; 2021-11-16)
DX: A41.9 Sepsis, unspecified organism (principal); J96.20 Acute and chronic respiratory failure, unspecified whether with hypoxia or hypercapnia; R65.21 Severe sepsis with septic shock; E43 Unspecified severe protein-calorie malnutrition; J16.8 Pneumonia due to other specified infectious organisms; D69.6 Thrombocytopenia, unspecified; L89.159 Pressure ulcer of sacral region, unspecified stage; Z99.11 Dependence on respirator [ventilator] status; Z93.0 Tracheostomy status; D75.839 Thrombocytosis, unspecified; Z20.822 Contact with and (suspected) exposure to COVID-19; R07.89 Other chest pain; D64.9 Anemia, unspecified; E11.9 Type 2 diabetes mellitus without complications; I10 Essential (primary) hypertension; Z93.3 Colostomy status; Z93.1 Gastrostomy status; Z74.01 Bed confinement status; Z79.82 Long term (current) use of aspirin; Z79.899 Other long term (current) drug therapy; Z68.1 Body mass index [BMI] 19.9 or less, adult; Z87.81 Personal history of (healed) traumatic fracture
CPT/HCPCS: 36415; 71045; 71275; 76376; 80048; 80053; 80202; 81003; 82272; 82607; 82728; 82746; 83540; 83550; 83880; 84484; 85025; 85044; 85379; 87040; 87070-TC; 87081; 87205-TC; 93005; 94003; 94640; 94760; 96361; 96365; 96368; 96374; 96375; 96376; 99285; G0378; J0692; J1956; J2270; J2405; J2543; J3370; J7050; J7060; Q9967

== ENCOUNTER 2022-10-31 14:45 | Emergency (ER) | payer MEDICAID ==
[~2022-10-31] VITALS: Ht 182.9 cm; Wt 68.0 kg
[2022-10-31 14:45] VITALS: BP_SYST 121
[~2022-10-31 14:45] MED LIST: ALBU8.5H8 INH; ASA81 GT; ASCO500T20 GT; CARB30DR14 EACH EYE; CHLO473M5 PO; DOCU-144 GT; INSU100V9 SQ; LIP40 GT; MELA5TAB12 GT; MULT-1117 GT; OXYIR5 GT; PROP10TA10 GT; TYLL650 GT; ZINC50TA69 GT
--- NOTE | 2022-10-31 14:45 | NUR ---
BROUGHT BACK TO BED #5 AND TRIAGED. REPORT GIVEN TO EM
--- NOTE | 2022-10-31 15:06 | NUR ---
Radiology at bedside
--- NOTE | 2022-10-31 15:16 | NUR ---
Pt [facility] from [facility] for ALOC Pt C/O generalized pain AOX2-3 VSS Able to make needs known Will continue to monitor
--- NOTE | 2022-10-31 15:18 | NUR ---
Pt away from unit for radiology
--- NOTE | 2022-10-31 15:31 | NUR ---
DR. LECHUGA CALLED AND STATED TO CALL HIM IF PT NEEDS ADMISSION
[2022-10-31 16:23] LABS: BASOPHILS % (AUTO) 0.3 % (0.0-2.0); EOSINOPHILS # (AUTO) 0.1 K/uL (0.0-0.4); EOSINOPHILS % (AUTO) 1.2 % (0.0-4.0); HEMATOCRIT 38.4 % (36-54); HEMOGLOBIN 12.4 g/dL (14.0-18.0); LYMPHOCYTES # (AUTO) 3.5 K/uL (1.0-5.5); LYMPHOCYTES % (AUTO) 28.3 % (20.5-51.5); MEAN CORPUSCULAR HEMOGLOBIN 28 pg (27-31); MEAN CORPUSCULAR HGB CONC 32 % (32-36); MEAN CORPUSCULAR VOLUME 85 fL (79.0-98.0); MONOCYTES # (AUTO) 0.8 K/uL (0.0-1.0); MONOCYTES % (AUTO) 6.1 % (1.7-9.3); NEUTROPHILS # (AUTO) 7.9 K/uL (1.8-7.7); NEUTROPHILS % (AUTO) 64.1 % (40.0-70.0); PLATELET COUNT (AUTO) 609 K/uL (130-430); RED BLOOD CELL COUNT(AUTO) 4.51 MIL/uL (4.2-6.2); RED CELL DISTRIBUTION WIDTH 17.4 % (9.0-15.0); WHITE BLOOD COUNT (AUTO) 12.3 K/uL (4.8-10.8)
[2022-10-31 16:40] LABS: ALANINE AMINOTRANSFERASE 93 U/L (12-78); ALBUMIN 3.3 g/dL (3.4-4.8); ANION GAP 12 (5-15); ASPARTATE AMINOTRANSFERASE 62 U/L (10-37); C-REACTIVE PROTEIN QUANT 12.3 mg/dL (0-0.5); CALCIUM 9.7 mg/dL (8.4-11.0); CHLORIDE 101 mmol/L (98-107); CREATININE 0.57 mg/dL (0.55-1.30); GLUCOSE 82 mg/dL (70-99); TOTAL BILIRUBIN 0.3 mg/dL (0.0-1.0); UREA NITROGEN, BLOOD 11 mg/dL (8-21)
[2022-10-31 16:42] LABS: GFR AFRICAN AMERICAN 207 mL/min (>90)
[2022-10-31 16:43] LABS: ACETAMINOPHEN < 1 ug/mL (1-30); ALCOHOL, BLOOD < 3 mg/dL (<10)
[2022-10-31 16:50] LABS: BILIRUBIN,URINE NEGATIVE (NEGATIVE); BLOOD, URINE NEGATIVE (NEGATIVE); CLARITY/URINE CLEAR (CLEAR); COLOR,URINE YELLOW (YELLOW); GLUCOSE,URINE NEGATIVE (NEGATIVE); KETONES,URINE TRACE (NEGATIVE); LEUKOCYTE ESTERASE ,URINE NEGATIVE (NEGATIVE); NITRITE, URINE NEGATIVE (NEGATIVE); PROTEIN URINE NEGATIVE (NEGATIVE); UROBILINOGEN,URINE 0.2 (0.2-1.0)
[2022-10-31 17:00] LABS: ACETONE, SERUM NEGATIVE (NEGATIVE)
[2022-10-31 17:00] LABS: BARBITURATE, URINE NEGATIVE (NEG <=200); BENZODIAZEPINE, URINE NEGATIVE (NEG <=150); CANNABINOID, URINE NEGATIVE (NEG <=50); COCAINE, URINE NEGATIVE (NEG <=150); METHAMPHETAMINES SCREEN,URINE NEGATIVE (NEG <=500); OPIATE, URINE POSITIVE (NEG <=100); PHENCYCLIDINE SCREEN,URINE NEGATIVE (NEG <=25); UR TRICYCLIC ANTIDEPRESSANTS NEGATIVE (NEG <=300); URINE AMPHETAMINE NEGATIVE (NEG <=500); URINE METHADONE NEGATIVE (NEG <=200); URINE OXYCODONE SCREEN POSITIVE (NEG <=100); URINE PROPOXYPHENE SCREEN NEGATIVE (NEG <=300)
[2022-10-31 17:20] VITALS: BP_SYST 126
[2022-10-31] MEDS ORDERED: KETOROLAC TROMETHAMINE 60 MG/2 ML VIAL IM ONE (17:45)
--- NOTE | 2022-10-31 20:02 | NUR ---
Patient given written and verbal discharge instructions and verbalizes understanding. ER MD discussed with patient the results and treatment provided. Patient in stable condition. ID arm band removed. no Rx given. Patient educated on pain management and to follow up with PMD. Pain Scale 0. Opportunity for questions provided and answered. Medication side effect fact sheet provided.
[2022-10-31] MEDS ORDERED: GASTROGRAFIN 120 ML ONE (20:15)
== END 2022-10-31 17:19 ==
LOC: SED 14:45
DX: R41.82 Altered mental status, unspecified (principal); T40.601A Poisoning by unspecified narcotics, accidental (unintentional), initial encounter; Y92.89 Other specified places as the place of occurrence of the external cause; E11.9 Type 2 diabetes mellitus without complications; I10 Essential (primary) hypertension; E78.5 Hyperlipidemia, unspecified; Z79.899 Other long term (current) drug therapy
CPT/HCPCS: 99285; 70450; 71045; 80307; 80053; 82009; 82140; 85025; 86140; 84484; 36415; 76376; 96372; 83605; 81003; G0482; J1885; Q9963; G0480; G0481

== ENCOUNTER 2022-11-10 04:29 | Inpatient (IN) | payer MEDICAID ==
[~2022-11-10] VITALS: Ht 167.6 cm; Wt 53.5 kg
[2022-11-10 04:29] VITALS: BP_SYST 107
--- NOTE | 2022-11-10 04:29 | NUR ---
Triaged and placed patient to ER bed 7 for evaluation. Report given to Henry ROWLAND for continuity of care. Bed placed in lowest position with side rails up. Instructed to notify ED staff for any changes in condition or worsening of symptoms while waiting to be seen by a provider. Patient verbalized understanding.
--- NOTE | 2022-11-10 04:31 | NUR ---
pt is here because he has blood in the colostomy bag. pt is alert aoriented x 3. pt claim to have pain 7/10 in the head. He had trach dressing.
--- NOTE | 2022-11-10 04:41 | NUR ---
pt has g tube
[2022-11-10] MEDS ORDERED: PANTOPRAZOLE SODIUM 40 MG/VIAL (PROTONIX) IVP ONE (04:45)
--- NOTE | 2022-11-10 05:04 | NUR ---
pt was swabbed and sent to labs
[2022-11-10] MEDS ORDERED: MORPHINE 4 MG INJ. 4 MG/ML VIAL IVP ONE (05:15)
[2022-11-10] MEDS ORDERED: SCOP1PAT21 TD (05:21)
[2022-11-10] MEDS ORDERED: AMIN30LI2 GT (05:21)
[2022-11-10] MEDS ORDERED: URSO500T7 GT (05:21)
[2022-11-10] MEDS ORDERED: FAMO20TA8 PO (05:21)
[2022-11-10] MEDS ORDERED: NITSL SL (05:21)
[2022-11-10] MEDS ORDERED: OXYC10TA56 GT (05:21)
--- NOTE | 2022-11-10 05:21 | NUR ---
Medication reconciliation done.
[2022-11-10 05:35] LABS: BASOPHILS % (AUTO) 0.4 % (0.0-2.0); EOSINOPHILS # (AUTO) 0.4 K/uL (0.0-0.4); HEMATOCRIT 40.8 % (36-54); HEMOGLOBIN 13.2 g/dL (14.0-18.0); LYMPHOCYTES # (AUTO) 3.6 K/uL (1.0-5.5); LYMPHOCYTES % (AUTO) 43.9 % (20.5-51.5); MEAN CORPUSCULAR HEMOGLOBIN 27 pg (27-31); MEAN CORPUSCULAR HGB CONC 33 % (32-36); MEAN CORPUSCULAR VOLUME 85 fL (79.0-98.0); MONOCYTES # (AUTO) 0.6 K/uL (0.0-1.0); MONOCYTES % (AUTO) 7.7 % (1.7-9.3); NEUTROPHILS # (AUTO) 3.6 K/uL (1.8-7.7); PLATELET COUNT (AUTO) 583 K/uL (130-430); RED BLOOD CELL COUNT(AUTO) 4.83 MIL/uL (4.2-6.2); RED CELL DISTRIBUTION WIDTH 17.2 % (9.0-15.0); WHITE BLOOD COUNT (AUTO) 8.3 K/uL (4.8-10.8)
[2022-11-10 05:44] LABS: ALBUMIN 2.8 g/dL (3.4-4.8); CALCIUM 8.7 mg/dL (8.4-11.0); CREATININE 0.56 mg/dL (0.55-1.30); TOTAL BILIRUBIN 0.1 mg/dL (0.0-1.0)
--- NOTE | 2022-11-10 06:38 | NUR ---
Admit bed requested Patient will be admitted to care of Dr. PORTER. Admitted to MEDSURG unit. Diagnosis GI BLEED Inpatient (Yes or No) YES Observation (Yes or No) NO request close to nursing station (Yes or No) NO On vent or bipap NO Isolation requirements NONE Needs a sitter NO From Home (Yes or if No enter name of facility) YES Requires Dialysis (Yes or No)NO Med Rec Completed (Yes of No) YES
--- NOTE | 2022-11-10 08:33 | NUR ---
CONSULTATION PAGED/CALLED Reason for Consultation: [] GI BLEED Person Who was Notified: [] DR CRAMER Consulting Physician: [] DR CRAMER Vibrator Equipment Tester Specialty: [] GI Ordering Physician: [] DR PORTER
[2022-11-10] MEDS ORDERED: OCTREOTIDE ACETATE 50 MCG/ML AMP IVP ONE (09:15)
[2022-11-10] MEDS: NACL 0.9% 1,000 ML IV SCH ×2 (09:19→16:48)
[2022-11-10 09:38] VITALS: BP_SYST 102
--- NOTE | 2022-11-10 09:39 | NUR ---
Patient will be admitted to care of Medsurg MD Suh. Admitted to Medsurg unit. Will go to room 123a. Belongings list completed. Complete and up to date summary report printed. SBAR report to be given at bedside with opportunity for questions.
[2022-11-10 09:49] VITALS: BP_SYST 102
[2022-11-10] MEDS ORDERED: PANTOPRAZOLE SODIUM 40 MG/VIAL (PROTONIX) ONE ×4 (09:56→14:34)
[2022-11-10] MEDS: PANTOPRAZOLE SODIUM 40 MG in NS 50 ML IV SCH ×3 (09:57→22:47)
[2022-11-10] MEDS: OCTREOTIDE ACETATE 1,250 MCG in NS 250 ML IV SCH (10:18)
[2022-11-10] MEDS: METOCLOPRAMIDE HCL 10 MG/2 ML VIAL IVP SCH ×3 (11:21→22:57)
[2022-11-10] MEDS ORDERED: NALOXONE HCL 0.4 MG/ML AMP (NARCAN) IVP PRN (11:30)
[2022-11-10] MEDS ORDERED: HYDROcodone/ACETAMIN 5-325 MG TAB (NORCO/ VICODIN) PO PRN (11:30)
--- NOTE | 2022-11-10 11:33 | NUR ---
ATTENDING MD DR PORTER WAS CALLED, RE: PAIN MEDICATION.
[2022-11-10 12:01] VITALS: BP_SYST 106
[2022-11-10 12:33] LABS: BASOPHILS % (AUTO) 0.5 % (0.0-2.0); EOSINOPHILS # (AUTO) 0.3 K/uL (0.0-0.4); HEMATOCRIT 39.2 % (36-54); HEMOGLOBIN 12.8 g/dL (14.0-18.0); LYMPHOCYTES # (AUTO) 3.1 K/uL (1.0-5.5); LYMPHOCYTES % (AUTO) 37.5 % (20.5-51.5); MEAN CORPUSCULAR HEMOGLOBIN 28 pg (27-31); MEAN CORPUSCULAR HGB CONC 33 % (32-36); MEAN CORPUSCULAR VOLUME 85 fL (79.0-98.0); MONOCYTES # (AUTO) 0.6 K/uL (0.0-1.0); MONOCYTES % (AUTO) 6.7 % (1.7-9.3); NEUTROPHILS # (AUTO) 4.3 K/uL (1.8-7.7); NEUTROPHILS % (AUTO) 51.3 % (40.0-70.0); PLATELET COUNT (AUTO) 573 K/uL (130-430); RED CELL DISTRIBUTION WIDTH 17.5 % (9.0-15.0); WHITE BLOOD COUNT (AUTO) 8.4 K/uL (4.8-10.8)
[2022-11-10 16:43] VITALS: BP_SYST 95
[2022-11-10] MEDS: HYDROcodone/ACETAMIN 5-325 MG TAB (NORCO/ VICODIN) GT PRN (17:43)
[2022-11-10] MEDS: PROPRANOLOL HCL 10 MG TABLET (INDERAL) GT SCH (18:00)
[2022-11-10] MEDS ORDERED: GOLYTELY / COLYTE SOLUTION 4 LITERS GT ONE (19:45)
--- NOTE | 2022-11-10 20:00 | NUR ---
GOLYTELY per G. Tube has been started for AM procedure per MD DR Woodall .
[2022-11-10 21:00] VITALS: BP_SYST 112
[2022-11-10] MEDS: INSULIN GLARGINE 100 UNITS/ML, 10 ML VIAL SQ SCH (21:00)
--- NOTE | 2022-11-10 21:00 | NUR ---
Low Blood Sugar @ 47 mg dl noted patient awake alert .
--- NOTE | 2022-11-10 21:15 | NUR ---
Phoned DR CHARLOTTE DRAKE & spoke with New orders obtained d/t low BS .
--- NOTE | 2022-11-10 21:15 | NUR ---
D 50 ONE AMP IVP administer for low BS .
[2022-11-10] MEDS ORDERED: GOLYTELY / COLYTE SOLUTION 4 LITERS ONE (21:21)
[2022-11-10] MEDS ORDERED: DEXTROSE 50% JECT 50 ML DISP.SYRIN ONE (21:55)
[2022-11-10] MEDS ORDERED: DEXTROSE 50% JECT 50 ML DISP.SYRIN IVP PRN (22:15)
[2022-11-10] MEDS ORDERED: GLUCOSE (DEXTROSE) ORAL GEL -Adults PO PRN (22:15)
[2022-11-10] MEDS ORDERED: D5W 1,000 ML IV PRN (22:15)
[2022-11-10] MEDS: ursodioL 300 MG CAPSULE GT SCH (22:46)
[2022-11-10] MEDS: ATORVASTATIN 20 MG TABLET GT SCH (22:46)
[2022-11-10] MEDS: MELATONIN 3 MG TABLET GT SCH (22:47)
--- NOTE | 2022-11-10 23:55 | NUR ---
[place] Tablet GT given for head ache , monitor .
--- NOTE | 2022-11-11 | NUR ---
Recheck BS @ 162 mg dl awake & alert .
[2022-11-11] MEDS: D5/0.45 NS 1,000 ML IV SCH ×2 (00:23→12:17)
[2022-11-11] MEDS: HYDROcodone/ACETAMIN 5-325 MG TAB (NORCO/ VICODIN) GT PRN ×4 (00:25→21:30)
[2022-11-11 00:41] VITALS: BP_SYST 103
--- NOTE | 2022-11-11 01:06 | NUR ---
Patient NPO this hour alert & aware .
--- NOTE | 2022-11-11 01:27 | NUR ---
COLLECTOMY stool semi clear .
[2022-11-11] MEDS: PANTOPRAZOLE SODIUM 40 MG in NS 50 ML IV SCH ×5 (04:33→21:31)
[2022-11-11] MEDS: PROPRANOLOL HCL 10 MG TABLET (INDERAL) GT SCH ×4 (06:00→17:33)
[2022-11-11 06:04] LABS: BASOPHILS # (AUTO) 0.1 K/uL (0.0-0.2); BASOPHILS % (AUTO) 0.8 % (0.0-2.0); EOSINOPHILS # (AUTO) 0.4 K/uL (0.0-0.4); EOSINOPHILS % (AUTO) 5.1 % (0.0-4.0); HEMATOCRIT 34.2 % (36-54); HEMOGLOBIN 11.1 g/dL (14.0-18.0); LYMPHOCYTES # (AUTO) 4.6 K/uL (1.0-5.5); LYMPHOCYTES % (AUTO) 54.4 % (20.5-51.5); MEAN CORPUSCULAR HEMOGLOBIN 27 pg (27-31); MEAN CORPUSCULAR HGB CONC 32 % (32-36); MEAN CORPUSCULAR VOLUME 85 fL (79.0-98.0); MONOCYTES # (AUTO) 0.6 K/uL (0.0-1.0); MONOCYTES % (AUTO) 7.7 % (1.7-9.3); NEUTROPHILS # (AUTO) 2.7 K/uL (1.8-7.7); PLATELET COUNT (AUTO) 531 K/uL (130-430); RED BLOOD CELL COUNT(AUTO) 4.04 MIL/uL (4.2-6.2); RED CELL DISTRIBUTION WIDTH 16.7 % (9.0-15.0); WHITE BLOOD COUNT (AUTO) 8.4 K/uL (4.8-10.8)
[2022-11-11] MEDS: METOCLOPRAMIDE HCL 10 MG/2 ML VIAL IVP SCH ×3 (06:05→17:32)
[2022-11-11 06:20] LABS: CALCIUM 8.2 mg/dL (8.4-11.0); CREATININE 0.51 mg/dL (0.55-1.30)
[2022-11-11 06:25] LABS: ALBUMIN 2.5 g/dL (3.4-4.8); TOTAL BILIRUBIN 0.3 mg/dL (0.0-1.0)
[2022-11-11 07:00] LABS: INR 1.1 (0.80-1.20); PROTHROMBIN TIME 11.1 SECS (9.5-12.5)
[2022-11-11] MEDS ORDERED: MEPERIDINE 50 MG/ML VIAL ONE (07:56)
[2022-11-11] MEDS ORDERED: MIDAZOLAM HCL 5 MG/5 ML VIAL ONE (07:57)
[2022-11-11 08:00] VITALS: BP_SYST 106
[2022-11-11] MEDS ORDERED: SIMETHICONE 40 MG/0.6 ML ML ONE (08:23)
[2022-11-11] MEDS ORDERED: FAMOTIDINE 20 MG TABLET PO SCH (09:00)
[2022-11-11] MEDS: DOCUSATE SODIUM 100 MG CAPSULE PO SCH (09:00)
[2022-11-11] MEDS: ursodioL 300 MG CAPSULE GT SCH ×2 (10:39→21:28)
[2022-11-11] MEDS: OCTREOTIDE ACETATE 1,250 MCG in NS 250 ML IV SCH (10:41)
[2022-11-11 12:00] VITALS: BP_SYST 102
[2022-11-11 16:00] VITALS: BP_SYST 104
[2022-11-11] MEDS ORDERED: INSULIN REGULAR, HUMAN 100 UNITS/ML, 3 ML VIAL (humuLIN R) SUBCUT PRN (17:45)
[2022-11-11 20:00] VITALS: BP_SYST 112
[2022-11-11] MEDS: ATORVASTATIN 20 MG TABLET GT SCH (21:32)
[2022-11-11] MEDS: MELATONIN 3 MG TABLET GT SCH (21:33)
[2022-11-11] MEDS: INSULIN GLARGINE 100 UNITS/ML, 10 ML VIAL SQ SCH (21:34)
--- NOTE | 2022-11-11 23:16 | NUR ---
COLLECTOMY bag intact in place semi liquid stool noted empty as needed / .
[2022-11-11 23:19] VITALS: BP_SYST 109
[2022-11-12] MEDS: HYDROcodone/ACETAMIN 5-325 MG TAB (NORCO/ VICODIN) GT PRN ×6 (02:35→22:26)
[2022-11-12] MEDS: PROPRANOLOL HCL 10 MG TABLET (INDERAL) GT SCH ×5 (02:36→23:52)
[2022-11-12] MEDS: METOCLOPRAMIDE HCL 10 MG/2 ML VIAL IVP SCH ×5 (02:36→23:35)
[2022-11-12] MEDS: PANTOPRAZOLE SODIUM 40 MG in NS 50 ML IV SCH ×5 (02:37→21:17)
[2022-11-12] MEDS: D5/0.45 NS 1,000 ML IV SCH ×2 (02:38→14:10)
--- NOTE | 2022-11-12 03:43 | NUR ---
[place] tablet per GT given for acute pain & helpful .
--- NOTE | 2022-11-12 06:52 | NUR ---
[place] 5/325mg PER GASTRIC Tube administer for acute general pain 12/26 also position change implemented on two hour schedule tolerated No DIABETIC Reaction noted patient Remains awake & alert / .
[2022-11-12 07:12] LABS: BASOPHILS # (AUTO) 0.1 K/uL (0.0-0.2); BASOPHILS % (AUTO) 0.8 % (0.0-2.0); EOSINOPHILS # (AUTO) 0.6 K/uL (0.0-0.4); HEMOGLOBIN 10.7 g/dL (14.0-18.0); LYMPHOCYTES # (AUTO) 4.1 K/uL (1.0-5.5); LYMPHOCYTES % (AUTO) 46.7 % (20.5-51.5); MEAN CORPUSCULAR HEMOGLOBIN 27 pg (27-31); MEAN CORPUSCULAR HGB CONC 32 % (32-36); MEAN CORPUSCULAR VOLUME 84 fL (79.0-98.0); MONOCYTES # (AUTO) 0.8 K/uL (0.0-1.0); MONOCYTES % (AUTO) 8.7 % (1.7-9.3); NEUTROPHILS # (AUTO) 3.2 K/uL (1.8-7.7); NEUTROPHILS % (AUTO) 36.8 % (40.0-70.0); PLATELET COUNT (AUTO) 512 K/uL (130-430); RED BLOOD CELL COUNT(AUTO) 3.92 MIL/uL (4.2-6.2); RED CELL DISTRIBUTION WIDTH 16.8 % (9.0-15.0); WHITE BLOOD COUNT (AUTO) 8.8 K/uL (4.8-10.8)
[2022-11-12 07:37] LABS: CALCIUM 8.5 mg/dL (8.4-11.0); CREATININE 0.48 mg/dL (0.55-1.30)
[2022-11-12] MEDS: ursodioL 300 MG CAPSULE GT SCH ×2 (08:47→21:19)
[2022-11-12] MEDS: DOCUSATE SODIUM 100 MG CAPSULE PO SCH (08:47)
[2022-11-12] MEDS: OCTREOTIDE ACETATE 1,250 MCG in NS 250 ML IV SCH (08:58)
--- NOTE | 2022-11-12 11:00 | NUR ---
blood sugar 165, patient declines insulin coverage at this time
--- NOTE | 2022-11-12 12:44 | NUR ---
propanolol held due to low bp 98/60
[2022-11-12 13:10] VITALS: BP_SYST 98
[2022-11-12 17:01] VITALS: BP_SYST 94
--- NOTE | 2022-11-12 18:22 | NUR ---
patient c/o 5/10 pain in abdomen and head, prn norco administered, blood sugar 164, patient declines insulin at this time
[2022-11-12 20:00] VITALS: BP_SYST 93
--- NOTE | 2022-11-12 20:17 | NUR ---
[facility] CALLED AND SPOKE WITH A FEMALE NAMES LADY AND INFORMED HER THAT PT WILL WILL BE SENT TOMORROW. THEY SAID ITS OK WE CAN HAVE EARLY A 7AM PRODUCT DEVELOPMENT ASSISTANT
[2022-11-12] MEDS: ATORVASTATIN 20 MG TABLET GT SCH (21:19)
[2022-11-12] MEDS: MELATONIN 3 MG TABLET GT SCH (21:20)
[2022-11-12] MEDS: INSULIN GLARGINE 100 UNITS/ML, 10 ML VIAL SQ SCH (23:40)
--- NOTE | 2022-11-13 | NUR ---
Propranol held due to low BP 92/59
[2022-11-13 00:21] VITALS: BP_SYST 92
--- NOTE | 2022-11-13 01:35 | NUR ---
MEDIC 1 AUTO HEADLIGHT MECHANIC IS 0800 GOING TO [facility]
[2022-11-13] MEDS: PANTOPRAZOLE SODIUM 40 MG in NS 50 ML IV SCH (03:46)
[2022-11-13] MEDS: D5/0.45 NS 1,000 ML IV SCH (03:47)
[2022-11-13 04:34] VITALS: BP_SYST 95
[2022-11-13] MEDS: METOCLOPRAMIDE HCL 10 MG/2 ML VIAL IVP SCH (05:41)
[2022-11-13] MEDS: PROPRANOLOL HCL 10 MG TABLET (INDERAL) GT SCH (05:42)
[2022-11-13] MEDS: HYDROcodone/ACETAMIN 5-325 MG TAB (NORCO/ VICODIN) GT PRN (06:43)
--- NOTE | 2022-11-13 07:56 | NUR ---
Patient was received from AM shift nurse during change of shift at 1900. Patient is AA&Ox4 able to make needs known, and had call light within reach. Patient stated that he had some pain but that he had just received PRN pain medication so his pain was going down. Chest rise was even and unlabored on RA. Patient denies any chest discomfort. Patient is NPO and a GT is noted on patient ABD with tube feeding running at 40ml/hr. Patient is noted to be tolerating it well with residual noted at <15ml. GT patent and flushing. No s/s of skin irritation around GT. Colostomy is also noted in ABD with no s/s of irritation at stoma site. Patient has been assessed this shift as per protocol. Orders were noted for pending discharge back to [facility] so discharge was completed and report was called and given to ARISTIDES RN. Patient is stable at this time and All current needs have been met at this time. Care was differed to CAMERON ROWLAND.
[2022-11-13 08:00] VITALS: BP_SYST 85
[2022-11-13] MEDS ORDERED: SCOPOLAMINE HYDROBROMIDE 1 MG PATCH .72 H (TRANSDERM-SCOP) TD SCH (09:00)
[2022-11-13] MEDS ORDERED: NS 250 ML IV ONE (09:00)
[2022-11-13] MEDS: DOCUSATE SODIUM 100 MG CAPSULE PO SCH (09:00)
--- NOTE | 2022-11-13 09:00 | NUR ---
A/Ox4,BP decreased to 85/58 per right arm,repeat BP in left arm 81/53 tae GLAZE SUPERVISOR here and notified,give NS 250ml IV bolus once per order right abdomen with colostomy drains 150ml brown semiliquid stool no signs of bleeding noted.continue to monitor pt.
[2022-11-13] MEDS: ursodioL 300 MG CAPSULE GT SCH (09:15)
[2022-11-13 10:00] VITALS: BP_SYST 100
[2022-11-13] MEDS: OCTREOTIDE ACETATE 1,250 MCG in NS 250 ML IV SCH (10:00)
[2022-11-13 10:05] LABS: BASOPHILS % (AUTO) 0.4 % (0.0-2.0); EOSINOPHILS # (AUTO) 0.5 K/uL (0.0-0.4); EOSINOPHILS % (AUTO) 5.2 % (0.0-4.0); HEMATOCRIT 33.4 % (36-54); HEMOGLOBIN 10.7 g/dL (14.0-18.0); LYMPHOCYTES # (AUTO) 4.4 K/uL (1.0-5.5); LYMPHOCYTES % (AUTO) 43.6 % (20.5-51.5); MEAN CORPUSCULAR HEMOGLOBIN 27 pg (27-31); MEAN CORPUSCULAR HGB CONC 32 % (32-36); MEAN CORPUSCULAR VOLUME 86 fL (79.0-98.0); MONOCYTES # (AUTO) 0.7 K/uL (0.0-1.0); MONOCYTES % (AUTO) 7.1 % (1.7-9.3); NEUTROPHILS # (AUTO) 4.4 K/uL (1.8-7.7); NEUTROPHILS % (AUTO) 43.7 % (40.0-70.0); PLATELET COUNT (AUTO) 507 K/uL (130-430); RED BLOOD CELL COUNT(AUTO) 3.91 MIL/uL (4.2-6.2); RED CELL DISTRIBUTION WIDTH 17.3 % (9.0-15.0); WHITE BLOOD COUNT (AUTO) 10.1 K/uL (4.8-10.8)
--- NOTE | 2022-11-13 10:15 | NUR ---
D/C Patient Patient given medication reconciliation form and D/C instructions. Exit Care provided. Patient verbalized understanding. MD discussed with patient the results and treatment provided.BP up to 100/70,pulse 65,O2 sat 100% on room air, Patient in stable condition, ID band removed. IV catheter removed, intact and dressing applied, no active bleeding.documents given. Patient educated on pain management. All belongings sent with patient.d/c to [facility] via ambulance
== END 2022-11-13 10:25 | DRG 253 ==
LOC: SED 04:29 → SMU 06:32
PROVIDERS: ADMIT Internal Medicine; ATTEND Internal Medicine
PROC: 0DJ08ZZ Inspection of Upper Intestinal Tract, Via Natural or Artificial Opening Endoscopic (ICD-10-PCS; principal; 2022-11-11 08:00)
PROC: 0DJD8ZZ Inspection of Lower Intestinal Tract, Via Natural or Artificial Opening Endoscopic (ICD-10-PCS; 2022-11-11 08:00)
DX: K92.2 Gastrointestinal hemorrhage, unspecified (principal); E43 Unspecified severe protein-calorie malnutrition; E11.9 Type 2 diabetes mellitus without complications; R13.10 Dysphagia, unspecified; E78.5 Hyperlipidemia, unspecified; J44.9 Chronic obstructive pulmonary disease, unspecified; Z20.822 Contact with and (suspected) exposure to COVID-19; I10 Essential (primary) hypertension; Z93.1 Gastrostomy status; Z87.891 Personal history of nicotine dependence; Z93.3 Colostomy status; Z93.2 Ileostomy status; Z79.82 Long term (current) use of aspirin; Z79.899 Other long term (current) drug therapy; Z79.1 Long term (current) use of non-steroidal anti-inflammatories (NSAID)
CPT/HCPCS: 36415; 43235; 45378; 71045; 80048; 80053; 85025; 85610-TC; 87081; 93005; 96374; 96375; 99285; C9113; J1815; J2175; J2250; J2270; J2354; J2765; J7050

== ENCOUNTER 2022-11-18 20:41 | Emergency (ER) | payer MEDICAID ==
[~2022-11-18] VITALS: Ht 165.1 cm; Wt 59.0 kg
[~2022-11-18 20:41] MED LIST changes: +AMIN30LI2 GT; +FAMO20TA8 PO; +NITSL SL; +OXYC10TA56 GT; +SCOP1PAT21 TD; +URSO500T7 GT
[2022-11-18 20:44] VITALS: BP_SYST 117
[2022-11-18] MEDS ORDERED: NACL 0.9% 1,000 ML IV ONE (21:30)
[2022-11-18] MEDS ORDERED: ONDANSETRON HCL 4 MG/2 ML VIAL IVP ONE (21:30)
[2022-11-18] MEDS ORDERED: MORPHINE 4 MG INJ. 4 MG/ML VIAL IVP ONE (21:30)
[2022-11-18 21:46] LABS: BASOPHILS % (AUTO) 0.2 % (0.0-2.0); HEMATOCRIT 38.8 % (36-54); HEMOGLOBIN 12.6 g/dL (14.0-18.0); LYMPHOCYTES # (AUTO) 2.6 K/uL (1.0-5.5); LYMPHOCYTES % (AUTO) 21.8 % (20.5-51.5); MEAN CORPUSCULAR HEMOGLOBIN 27 pg (27-31); MEAN CORPUSCULAR HGB CONC 33 % (32-36); MEAN CORPUSCULAR VOLUME 84 fL (79.0-98.0); MONOCYTES % (AUTO) 8.4 % (1.7-9.3); NEUTROPHILS # (AUTO) 8.4 K/uL (1.8-7.7); NEUTROPHILS % (AUTO) 69.6 % (40.0-70.0); PLATELET COUNT (AUTO) 545 K/uL (130-430); RED BLOOD CELL COUNT(AUTO) 4.62 MIL/uL (4.2-6.2); RED CELL DISTRIBUTION WIDTH 16.7 % (9.0-15.0); WHITE BLOOD COUNT (AUTO) 12.1 K/uL (4.8-10.8)
[2022-11-18 22:00] LABS: ALBUMIN 3.2 g/dL (3.4-4.8); CALCIUM 9.2 mg/dL (8.4-11.0); CREATININE 0.6 mg/dL (0.55-1.30); TOTAL BILIRUBIN 0.7 mg/dL (0.0-1.0)
[2022-11-19] MEDS ORDERED: MORPHINE 2 MG/ML INJ. SYRINGE IVP ONE (05:30)
[2022-11-19 08:10] LABS: BILIRUBIN,URINE NEGATIVE (NEGATIVE); BLOOD, URINE NEGATIVE (NEGATIVE); CLARITY/URINE CLEAR (CLEAR); COLOR,URINE YELLOW (YELLOW); GLUCOSE,URINE NEGATIVE (NEGATIVE); KETONES,URINE TRACE (NEGATIVE); LEUKOCYTE ESTERASE ,URINE NEGATIVE (NEGATIVE); NITRITE, URINE NEGATIVE (NEGATIVE); PH,URINE 6.5 (5.0-8.0); PROTEIN URINE NEGATIVE (NEGATIVE)
[2022-11-19] MEDS ORDERED: POLY119P2 PO (08:25)
[2022-11-19 09:11] VITALS: BP_SYST 121
== END 2022-11-19 09:11 | disposition home or self-care (01) ==
LOC: SED 20:41
DX: K59.00 Constipation, unspecified (principal); K29.80 Duodenitis without bleeding; R10.11 Right upper quadrant pain; R11.0 Nausea; E11.9 Type 2 diabetes mellitus without complications; I10 Essential (primary) hypertension; E78.5 Hyperlipidemia, unspecified; Z79.899 Other long term (current) drug therapy
CPT/HCPCS: 99285; 74176; 96374; 96361; 96375; 80053; 83690; 85025; 87040; 36415; 76376; 83605; 81003; 96376; J2405; J2270 ×2; J7030